=== PATIENT | female | born 1945 | race Caucasian/White ===

== ENCOUNTER 2016-11-04 08:23 | Outpatient (CLI) | payer OTHER | END 2016-11-04 18:46 | disposition home or self-care (01) | LOC: SMA 08:23 | PROVIDERS: ATTEND Internal Medicine | DX: Z12.31 Encounter for screening mammogram for malignant neoplasm of breast (principal) | CPT/HCPCS: G0202 ==

== ENCOUNTER 2017-11-06 10:32 | Outpatient (CLI) | payer OTHER | END 2017-11-06 20:16 | disposition home or self-care (01) | LOC: SMA 10:32 | PROVIDERS: ATTEND Internal Medicine | DX: Z12.31 Encounter for screening mammogram for malignant neoplasm of breast (principal) | CPT/HCPCS: 77067 ==

== ENCOUNTER 2018-11-08 08:41 | Outpatient (CLI) | payer OTHER | END 2018-11-08 20:14 | disposition home or self-care (01) | LOC: SMA 08:41 | PROVIDERS: ATTEND Internal Medicine | DX: Z12.31 Encounter for screening mammogram for malignant neoplasm of breast (principal) | CPT/HCPCS: 77067 ==

== ENCOUNTER 2020-04-10 10:06 | Outpatient (CLI) | payer OTHER | END 2020-04-10 19:27 | disposition home or self-care (01) | LOC: SMA 10:06 | PROVIDERS: ATTEND Internal Medicine | DX: Z12.31 Encounter for screening mammogram for malignant neoplasm of breast (principal) | CPT/HCPCS: 77067 ==

== ENCOUNTER 2022-10-27 09:54 | Outpatient (CLI) | payer OTHER | END 2022-10-27 19:04 | disposition home or self-care (01) | LOC: SMA 09:54 | PROVIDERS: ATTEND Internal Medicine | DX: Z12.31 Encounter for screening mammogram for malignant neoplasm of breast (principal) | CPT/HCPCS: 77067 ==

== ENCOUNTER 2023-12-19 12:18 | Outpatient (CLI) | payer OTHER | END 2023-12-19 18:48 | disposition home or self-care (01) | LOC: SMA 12:18 | PROVIDERS: ATTEND Internal Medicine | DX: Z12.31 Encounter for screening mammogram for malignant neoplasm of breast (principal) | CPT/HCPCS: 77067 ==